=== PATIENT | male | born 1995 | race Two or more races ===

== ENCOUNTER 2024-09-08 22:23 | Emergency (ER) | payer OTHER ==
[~2024-09-08] VITALS: Ht 175.3 cm; Wt 75.0 kg
[2024-09-08 22:26] VITALS: BP 145/87; PULSE 84; RESP 16; TEMP 98.7; O2SAT 100
== END 2024-09-08 23:51 | disposition home or self-care (01) ==
LOC: EMS 22:23
DX: R00.2 Palpitations (principal); R07.89 Other chest pain; F10.20 Alcohol dependence, uncomplicated; Z65.3 Problems related to other legal circumstances
CPT/HCPCS: 93005; 99283